=== PATIENT | male | born 1995 | race Caucasian/White ===

== ENCOUNTER 2018-12-24 17:47 | Emergency (ER) | payer OTHER ==
[2018-12-24] MEDS: LIDOCAINE 1%/EPI (MDV) 50 ML INJ INJ (19:36)
[2018-12-24] MEDS: LIDOCAINE 2% (MDV) 20 ML INJ INJ (19:36)
[2018-12-24] MEDS: ACETAMINOPHEN 650MG/20.3ML CUP PO ×2 (19:37→19:40)
== END 2018-12-24 19:40 | disposition home or self-care (01) ==
LOC: FTE 17:47
DX: S01.112A Laceration without foreign body of left eyelid and periocular area, initial encounter (principal); W50.0XXA Accidental hit or strike by another person, initial encounter; Y92.322 Soccer field as the place of occurrence of the external cause
CPT/HCPCS: 12011; 99282-25